=== PATIENT | male | born 1955 | race Caucasian/White ===

== ENCOUNTER 2023-10-07 09:48 | Outpatient (OUT) | payer MEDICARE, SELFPAY ==
[2023-10-07 10:21] LABS: Basophils Percent Auto 0.5 % (0.2-2.0); Eosinophils Absolute Auto 0.2 10^3/uL (0.0-0.7); Eosinophils Percent Auto 1.9 % (0.9-7.0); Hematocrit 46.1 % (42.0-54.0); Hemoglobin 15.3 g/dL (14.0-18.0); Immature Granulocytes Abs Auto 0.03 10^3/uL (0.00-0.03); Immature Granulocytes Pct Auto 0.3 % (0.0-0.5); Lymphocytes Absolute Auto 1.4 10^3/uL (1.2-3.8); Lymphocytes Percent Auto 16.4 % (20.5-60.0); Mean Corpuscular HGB Conc 33.2 g/dL (29.9-35.2); Mean Corpuscular Volume 87.3 fL (80.0-94.0); Mean Platelet Volume 9.3 fL (9.5-13.5); Monocytes Absolute Auto 0.5 10^3/uL (0.3-0.8); Monocytes Percent Auto 5.2 % (1.7-12.0); Neutrophils Absolute Auto 6.5 10^3/uL (1.4-6.5); Neutrophils Percent Auto 75.7 % (43.0-75.0); Platelet Count 246 10^3/uL (150-450); Red Blood Count 5.28 10^6/uL (4.70-6.10); Red Cell Distribution Width 12.6 % (11.0-15.0); White Blood Count 8.6 10^3/uL (4.0-11.0)
[2023-10-07 10:33] LABS: Alanine Aminotransferase 37 U/L (16-63); Albumin Globulin Ratio 0.9; Albumin Level 3.6 g/dL (3.4-5.0); Alkaline Phosphatase 106 U/L (46-116); Anion Gap 14.6; Aspartate Amino Transferase 17 U/L (15-37); Bilirubin Total 0.7 mg/dL (0.2-1.0); Calcium 9.6 mg/dL (8.5-10.1); Carbon Dioxide 27.3 mmol/L (21.0-32.0); Chloride 103 mmol/L (98-107); Estimated GFR (African America >60 (>=60); Estimated GFR (Non-African Ame 52 (>=60); Glucose 102 mg/dL (74-106); Potassium 3.9 mmol/L (3.5-5.1); Sodium 141 mmol/L (136-145); Total Protein 7.6 g/dL (6.4-8.2); Uric Acid 7.9 mg/dL (3.5-7.2)
[2023-10-07 10:44] LABS: Prostate Specific Antigen Scrn 3.36 ng/mL (<=4.00)
== END 2023-10-07 09:49 | disposition home or self-care (01) ==
LOC: LAB 09:54
PROVIDERS: PCP Family Medicine; Visit Provider Family Medicine
DX: N40.0 Benign prostatic hyperplasia without lower urinary tract symptoms (principal); M19.90 Unspecified osteoarthritis, unspecified site; Z12.5 Encounter for screening for malignant neoplasm of prostate; I10 Essential (primary) hypertension
CPT/HCPCS: 36415; 80053; 84550; 85025; G0103

== ENCOUNTER 2024-07-25 08:22 | Outpatient (OUT) | payer MEDICARE, SELFPAY ==
--- OUTSIDE RECORDS SUMMARY | 2024-07-25 08:30 | XMS_ITS | CCD ---
Author Organization [facility] Care Team Providers Care Vp Corporate Development Name Role Phone PHYSICIAN, DEFAULT Unavailable Unavailable PHYSICIAN, DEFAULT Unavailable Unavailable HOUSE, DR CISNEROS Admitting Unavailable HOUSE, DR CISNEROS Attending Unavailable HOUSE, DR CISNEROS Primary Care Unavailable HOUSE, DR CISNREOS Consulting Unavailable CHAVEZ, DR CAM Admitting Unavailable CHAVEZ, DR CAM Attending Unavailable HOUSE, DR CISNEROS Primary Care Unavailable CHAVEZ, DR CAM Consulting Unavailable House, Lorenzo Hillman Primary Care Physician [phone] HOUSE, LORENZO Hillman Primary Care Physician YUSUF, Erasto Chen Attending Unavailable CHAVEZ, Erasto Chen Attending Unavailable CHAVEZ, Erasto Chen Attending Unavailable CHVAEZ, Erasto Chen Admitting Unavailable CHAVEZ, Erasto Chen Attending Unavailable CHAVEZ, Erasto Chen Attending Unavailable HOUSE, DO LORENZO Hillman Attending Unavailable HOUSE, LORENZO Hillman Primary Care Unavailable HOUSE, DO LORENZO Hillman Attending Unavailable HOUSE, LORENZO Hillman Primary Care Unavailable CHAVEZ, Erasto Chen Attending Unavailable CHAVEZ, Erasto Chen Admitting Unavailable CHAVEZ, Erasto Chen Attending Unavailable Allergies Allergy Classification Reported Allergen(s) Allergy Type Date of Onset Reaction(s) Facility (2 sources) No Known Medication Allergies; Translations: [No Known Medication Allergies] Propensity to adverse reactions (disorder) [facility] Repository Medications Current Medications Medication Drug Class(es) Dates Sig (Normalized) Sig (Original) Eliquis (1 source) Factor Xa Inhibitor Start: 05-23-2019 Eliquis Oral, BID, Refills(s) 0 Start Date: 05/23/19 Status: Ordered hydroCHLOROthiazide / Lisinopril (3 sources) Thiazide Diuretic, Angiotensin Converting Enzyme Inhibitor Start: 05-23-2019 take 1 tablet by mouth once daily hydrochlorothia zide-lisinopril 12.5 mg-10 mg oral tablet tab(s), Oral, Daily, Refill(s) 0 Start Date: 05/23/19 Status: Ordered Repeat number: 1 Start: 05-23-2019 [facility] hydrochlorothiazide-lisinopril 12.5 mg-1 0 mg oral tablet tab(s), Oral, Daily, Refill(s) 0 Start Date: 05/23/19 Status: Ordered tamsulosin hydrochloride 0.4 mg oral capsule (3 sources) alpha-Adrenergic Festus Start: 06-20-2024 take 1 capsule by mouth twice daily tamsulosin 0.4 mg Cap 0.4 mg = 1 cap(s), Oral, BID, # 60 cap(s), Refills(s) 11, Pharmacy: [facility] [id number], 165, cm, 06/20/24 10:27:00 EDT, Height/Length Dosing, 81.5, kg, 06/20/24 10:27:00 EDT, Weight Dosing Start Date: 06/20/24 Status: Ordered Quantity: 60.0 Unit: cap(s) Repeat number: 12 Indication: Benign prostatic hyperplasia with lower urinary tract symptoms Start: 07-16-2022 End: 07-11-2023 take 1 capsule by mouth twice daily Flomax 0.4 mg Cap 0.4 mg = 1 cap(s), Oral, BID, X 90 day(s), # 180 cap(s), Refills(s) 3, Pharmacy: [facility] [id number], 165, cm, 04/22/22 8:53:00 EST, Height/Length Dosing, 84.7, kg, 04/22/22 8:53:00 EST, Weight Dosing Start Date: 07/16/22 Stop Date: 07/11/23 Status: Ordered Start: 10-28-2021 take 1 capsule by mo [facility] twice daily Flomax 0.4 mg Cap 0.4 mg = 1 cap(s), Oral, BID, # 180 tab(s), Refills(s) 1, Pharmacy: [facility] [id number], 165, cm, 10/15/20 14:13:00 EDT, Height/Length Dosing, 80, kg, 10/15/20 14:13:00 EDT, Weight Dosing Start Date: 10/28/21 Status: Ordered Problems Active Problems Problem Classification Problem Date Documented Da te Episodic/Chronic Essential hypertension (3 sources) Hypertensive disorder 05-23-2019 Chronic Genitourinary symptoms and ill-defined conditions (7 sources) Nocturia; Translations: [Nocturia] Onset: 04-22-2022 Episodic Hyperplasia of prostate (9 sources) Benign prostatic hyperplasia with lower urinary tract symptoms; Translations: [Benign prostatic hypertrophy with outflow obstruction] Onset: 02-03-2022 Chronic Other screening for suspected conditions (not mental disorders or infectious disease) (6 sources) Elevated prostate specific antigen [PSA]; Translations: [Raised prostate specific antigen] Onset: 02-11-2022 Episodic Phlebitis; thrombophlebitis and thromboembolism (3 sources) Deep venous thrombosis 05-23-2019 Episodic Unclassified (1 source) Asymptomatic microscopic hematuria 06-20-2024 Past or Other Problems Problem Classification Problem Date Documented Da te Episodic/Chronic Other non-traumatic joint disorders (4 sources) Pain in right shoulder; Translations: [PAIN IN RIGHT SHOULDER] Onset: 10-01-2021 Episodic Results Test Name Value Interpretation Reference Range Facility Lab - Urinalysis [facility] 0 06-21-2024 Lab - Urinalysis Results [id number] 0#1.00OT[facility] Ambulatory Visit Summaryon 0 06-20-2024 Ambulatory Visit Summary Ambulatory Visit Summary JERI LOW :1955 Visit Date:06/20/2024 Ambulatory Visit Instructions Your Diagnosis Elevated PSA Asymptomatic microscopic hematuria BPH with urinary obstruction Your Care Team Attending Physician - Erasto CHAVEZ MD Primary Care Physician - LORENZO KING DO This Is Your Medications List tamsulosin (tamsulosin 0.4 mg Cap) Contact prescribing physician if questions or concerns hydrochlorothiazide- lisinopril (hydrochlorothiazide -lisinopril 12.5 mg-10 mg oral tablet) Procedures Performed Transrectal biopsy of prostate using ultrasound (US) guidance (05/17/2018), History of hernia repair. Discharge Vitals Temperature (Temporal Artery) 37 ???C Heart Rate (Peripheral) 104 Respiratory Rate 16 Blood Pressure 126/83 Height 165 cm Height 65 in Weight 81.5 kg Weight 179.677 lb BMI 29.94 What to do next You Need to Schedule the Following Appointments Follow Up with YUSUF NGUYEN, SHERIN Leone When: Where: [facility] [address], [place] [address]- [phone] Medications What How Much When Why Instructions Unchanged tamsulosin (tamsulosin 0.4 mg Cap) 1 Capsules By Mouth 2 times a day BPH with urinary obstruction Pickup at [facility] [id number] Unchanged hydrochlorothiazide- lisinopril (hydrochlorothiazide -lisinopril 12.5 mg-10 mg oral tablet) By Mouth Every day Contact prescribing physician if questions or concerns Pharmacy Information [facility] [id number]: [address] [place], [place] [id number] [phone] Allergies No Known Medication Allergies Problems Ongoing - Any problem that you are currently receiving treatment for. Asymptomatic microscopic hematuria BPH with urinary obstruction Deep vein thrombosis Elevated PSA H/O hematuria Hypertension Nocturia Patient Survey You may receive a survey via text or e-mail asking about your office visit. Please share your experience with us by completing your survey. We appreciate your feedback and thank you for choosing us for your care. Education Materials Hematuria, Adult Hematuria is blood in the urine. Blood may be visible in the urine, or it may be identified with a test. This condition can be caused by infections of the bladder, urethra, kidney, or prostate. Other possible causes include: ??? Kidney stones. ??? Cancer of the urinary tract. ??? Too much calcium in the urine. ??? Conditions that are passed from parent to child (inherited conditions). ??? Exercise that requires a lot of energy. Infections can usually be treated with medicine, and a kidney stone usually will pass through your urine. If neither of these is the cause of your hematuria, more tests may be needed to identify the cause of your symptoms. It is very important to tell your health care provider about any blood in your urine, even if it is painless or the blood stops without treatment. Blood in the urine, when it happens and then stops and then happens again, can be a symptom of a very serious condition, including cancer. There is no pain in the initial stages of many urinary cancers. Follow these instructions at home: Medicines ??? Take ifai-dgu-ywplecn and prescription medicines only as told by your health care provider. ??? If you were prescribed an antibiotic medicine, take it as told by your health care provider. Do not stop taking the antibiotic even if you start to feel better. Eating and drinking ??? Drink enough fluid to keep your urine pale yellow. It is recommended that you drink 3???4 quarts (2.8???3.8 L) a day. If you have been diagnosed with an infection, drinking cranberry juice in addition to large amounts of water is recommended. ??? Avoid caffeine, tea, and carbonated beverages. These tend to irritate the bladder. ??? Avoid alcohol because it may irritate the prostate (in males). General instructions ??? If you have been diagnosed with a kidney stone, follow your health care provider's instructions about straining your urine to catch the stone. ??? Empty your bladder often. Avoid holding urine for long periods of time. ??? If you are female: ? After a bowel movement, wipe from front to back and use each piece of toilet paper only once. ? Empty your bladder before and after sex. ??? Pay attention to any changes in your symptoms. Tell your health care provider about any changes or any new symptoms. ??? It is up to you to get the results of any tests. Ask your health care provider, or the department that is doing the test, when your results will be ready. ??? Keep all follow-up visits. This is important. Contact a health care provider if: ??? You develop back pain. ??? You have a fever or chills. ??? You have nausea or vomiting. ??? Your symptoms do not improve after 3 days. ??? Your symptoms get worse. Get help right away if: ??? (more content not included)... Normal [facility] URINALYSISOrdered By: SYSTEM SYSTEM on 06-20-2024 Bilirubin Ql (U) Negative Normal Negativemg/dL [facility] UA Auto SS Clarity (U) Clear (06/20/24 11:17 AM) Normal Clear [facility] UA Auto SS Color (U) Yellow 1 (06/20/24 11:17 AM) Normal Yellow [facility] UA Auto SS Comment on above: Interpretive Data: M icroscopic readings are only performed on those samples that meet specific criteria set forth by [facility]. Epithelial cells.squamous Auto (Urine sed) [#/Area] 0-2 graded/HPF Invalid Interpretation Code FT UA Auto SS Glucose Ql (U) Negative Normal Negativemg/dL FT UA Auto SS Hemoglobin Auto test strip (U) [Mass/Vol] 1+ mg/dL Invalid Interpretation Code Negativemg/dL [facility] UA Auto SS Ketones Auto test strip Ql (U) Negative Normal Negativemg/dL FT UA Auto SS Leukocyte esterase Auto test strip Ql (U) Negative Normal NegativeLeu/u L FT UA Auto SS Mucus Auto Ql (U) Negative Normal Negativegr brad d/LPF [facility] UA Auto SS Nitrite Auto test strip Ql (U) Negative Normal Negativemg/dL [facility] UA Auto SS pH (U) 6.5 *NA* (06/20/24 11:17 AM) Invalid Interpretation Code 5.0 - 9.0 [facility] UA Auto SS Protein Ql (U) Trace mg/dL Invalid Interpretation Code Negativemg/dL [facility] UA Auto SS RBC Ql (U) 4-20 graded/HPF Invalid Interpretation Code 0-3graded/HPF FT UA Auto SS Specific gravity (U) [Rel density] 1.022 *NA* (06/20/24 11:17 AM) Invalid Interpretation Code 1.005 - 1.030 [facility] UA Auto SS Urobilinogen (U) [Mass/Vol] Negative Normal Negativemg/dL [facility] UA Auto SS WBC Auto (Urine sed) [#/Area] 0-5 graded/HPF Normal 0-5graded/HPF [facility] UA Auto SS URINALYSISOrdered By: Chris Alba on 06-20-2024 UA Spec Desc Random Urine (06/20/24 11:17 AM) Normal [facility] UA Auto SS Urinalysis with Microon 0 Bilirubin Ql (U) Negative Normal Negative [facility] Comment on above: Performed By: #### 4 [id number] #### [facility] [address] [place] [address] Clarity (U) Clear Normal Clear [facility] Comment on above: Performed By: #### 4 [id number] #### [facility] [address] [place] [address] Color (U) Yellow Normal Yellow [facility] Comment on above: Result Comment: Micr oscopic readings are only performed on those samples that meet specific criteria set forth by [facility]. Performed By: #### 4 [id number] #### [facility] [address] [place] [address] Epithelial cells.squamous Auto (Urine sed) [#/Area] 0-2 Invalid Interpretation Code [facility] Comment on above: Performed By: #### 4 [id number] #### [facility] [address] [place] [address] Glucose Ql (U) Negative Normal Negative [facility] Comment on above: Performed By: #### 4 [id number] #### [facility] [address] [place] [address] Hemoglobin Auto test strip (U) [Mass/Vol] 1+ mg/dL Abnormal Negative [facility] Comment on above: Performed By: #### 4 [id number] #### [facility] [address] [place] [address] Ketones Auto test strip Ql (U) Negative Normal Negative [facility] Comment on above: Performed By: #### 4 [id number] #### [facility] [address] [place] [address] Leukocyte esterase Auto test strip Ql (U) Negative Normal Negative [facility] Comment on above: Performed By: #### 4 [id number] #### [facility] [address] [place] [address] Mucus Auto Ql (U) Negative Normal Negative [facility] Comment on above: Performed By: #### 4 [id number] #### [facility] [address] [place] [address] Nitrite Auto test strip Ql (U) Negative Normal Negative [facility] Comment on above: Performed By: #### 4 [id number] #### [facility] [address] [place] [address] pH (U) 6.5 [pH] Invalid Interpretation Code 5.0-9.0 [facility] Comment on above: Performed By: #### 4 [id number] #### [facility] [address] [place] [address] Protein Ql (U) Trace Abnormal Negative [facility] Comment on above: Performed By: #### 4 [id number] #### [facility] [address] [place] [address] RBC Ql (U) 4-20 Abnormal 0-3 [facility] Comment on above: Performed By: #### 4 [id number] #### [facility] [address] [place] [address] Specific gravity (U) [Rel density] 1.022 Invalid Interpretation Code 1.005-1.030 [facility] Comment on above: Performed By: #### 4 [id number] #### [facility] [address] [place] [address] Urobilinogen (U) [Mass/Vol] Negative Normal Negative [facility] Comment on above: Performed By: #### 4 [id number] #### [facility] [address] [place] [address] WBC Auto (Urine sed) [#/Area] 0-5 Normal 0-5 [facility] Comment on above: Performed By: #### 4 [id number] #### [facility] [address] [place] [address] Type of Urine collection method Random Urine Normal [facility] Comment on above: Performed By: #### 4 [id number] #### [facility] [address] [place] [address] Urology Office/Clinic Noteon 06-20-2024 Urology Office/Clinic Note Urology Office/Clinic Note Chief Complaint 1 year with PSA HPI Staff 68 year old male patient here for year follow up with PSA. Previous dx: elevated PSA, BPH with urinary obstruction. S/P TRUS/bx 05/2018 *flomax 0.4 mg bid Previous PSA 02/17/23- 2.3 & 21.3% Current PSA 10/07/23 - 3.36 Denies urinary concerns at this time. Pt does have Nocturia 2-3x nightly but states that he does not stop his drinks until about 30 minutes before he goes to bed. History of Present Illness Tests reviewed: reviewed UA, PSA I have reviewed the previous health record information and history for this patient from Dr. Chavez. I have reviewed and verified the staff HPI to be accurate for this encounter. Review of Systems ROS - Provider Constitutional: denies weight loss, denies hot flashes. Eyes: denies eye problems. Gastrointestinal: denies nausea, denies vomiting. Cardiovascular: denies chest pain or angina. Integumentary: no dryness Musculoskeletal: denies musculoskeletal symptoms. ENMT: denies otolaryngeal symptoms. Respiratory: no shortness of breath. Heme/Lymph: denies easy bleeding tendency, denies easy bruising tendency. Psychiatric: no confusion, no anxiety. Genitourinary: See HPI. Physical Exam Vitals & Measurements T: 37 ???C(Temporal Artery) HR: 104(Peripheral) RR: 16 BP: 126/83 HT: 165 cm HT: 65 in WT: 179.677 lb WT: 81.5 kg BMI: 29.94 General Appearance: alert, no distress, well nourished, well developed male. Assessment/Plan 1. Elevated PSA (R97.20: Elevated prostate specific antigen [PSA]) PSA: 04/2018 - 6.32 & 9.8% 09/25/20 - 4.7 & 10.4% 02/03/22 - 3.2 & 16.6% 02/17/23 - 2.3 & 21.3% 10/07/23 - 3.36 S/p TRUS/bx 05/2018 neg. JORGE 04/22/22: 45 gms, benign. PSA has increased from prior. Has been high in the past. Will cont to monitor. -PSA in 1 year 2. Asymptomatic microscopic hematuria (R31.21: Asymptomatic microscopic hematuria) UA today shows small blood (no prior UAs since 2020). Denies gross hematuria. Advised pt we will send urine for further microscopic evaluation. Briefly discussed hematuria workup may be initiated which includes cytology/possible FISH test, upper tract imaging, and cystoscopy. -Urine sample to be sent for microscopic evaluation. Will call pt w results. If >3 RBCs, will initiate hematuria workup (pt aware). -Cont sx monitoring and routine UAs. Pt knows to notify the office if he were to experience gross hematuria or clots. 3. BPH with urinary obstruction (N40.1: Benign prostatic hyperplasia with lower urinary tract symptoms) Taking Flomax 0.4 mg bid. [1] Not voicing any urinary habit complaints. Follow-up With When Contact Information YUSUF NGUYEN, Erasto Chen, URL [facility] [address], [place] [address]- [phone] Additional Instructions: 1 yr w/ PSA Patient Education Hematuria, Adult I, Joanne Jason, personally scribed for Dr. Chavez on 06/20/2024 10:58:39. . Documentation recorded by the scribe, Joanne Jason, accurately reflects the services(s) I performed and decisions made by me. Authenticated by Dr. Chavez on 06/20/2024 11:02:06. Problem List/Past Medical History Ongoing Asymptomatic microscopic hematuria BPH with urinary obstruction Deep vein thrombosis Elevated PSA H/O hematuria Hypertension Nocturia Historical No qualifying data Procedure/Surgical History Transrectal biopsy of prostate using ultrasound (US) guidance (05/17/2018), History of hernia repair. Medications hydrochlorothiazide- lisinopril 12.5 mg-10 mg oral tablet, Oral, Daily tamsulosin 0.4 mg Cap, 0.4 mg= 1 cap(s), Oral, BID, 11 refills Allergies No Known Medication Allergies Social History Alcohol Never., 06/13/2024 Substance Abuse Never., 06/13/2024 Tobacco Never (less than 100 in lifetime) Tobacco Use:. Never Smokeless Tobacco Use:. Household tobacco concerns: No., 06/20/2024 Family History Family history is negative Lab Results Ambulatory Point of Care Results Bilirubin Urine Dipstick: Negative (06/20/24 10:18:00) Blood Urine Dipstick: 1+ Small (06/20/24 10:18:00) Glucose Urine Dipstick: Negative (06/20/24 10:18:00) Ketones Urine Dipstick: Negative (06/20/24 10:18:00) Leukocytes Urine Dipstick: Negative (06/20/24 10:18:00) Nitrite Urine Dipstick: Negative (06/20/24 10:18:00) Protein Urine Dipstick: 1+ (30 mg/dl) (06/20/24 10:18:00) Specific [place] Urine Dipstick: 1.025 (06/20/24 10:18:00) Urine Appearance Urine Dipstick: Clear (06/20/24 10:18:00) Urine Color Urine Dipstick: Yellow (06/20/24 10:18:00) Urobilinogen Urine Dipstick: Normal 0.2-1 EU/dl (06/20/24 10:18:00) pH Urine Dipstick: 6.5 (06/20/24 10:18:00) [1] URO- 1 year; Erasto CHAVEZ MD 05/15/2023 09:31 EDT Normal [facility] Comment on above: Result Comment: Elec tronically Signed By: Erasto CHAVEZ MD\.br\Date and Time Signed: 06/20/24 11:02 EDT\.br\Electronically Co-Signed By: Joanne Jason\.br\Date and Time Co-Signed: 06/20/24 10:59 EDT Lab - Other Lab [facility] Lab - Other Lab Results [id number] [facility]-07-2023 Patient Handout [id number] #[facility] Patient Handout [id number] [facility] PSA, FREE AND TOTAL RATIOon 02-04-2022 % Free PSA 16.6 % Normal [facility] Comment on above: Result Comment: The table below lists the probability of prostate cancer for men with non-suspicious JORGE results and total PSA between 4 and 10 ng/mL, by patient age (Catalona et al, PADMA 1998, 279:1542). % Free PSA 50-64 yr 65-75 yr 0.00-10.00% 56% 55% 10.01-15.00% 24% 35% 15.01-20.00% 17% 23% 20.01-25.00% 10% 20% >25.00% 5% 9% Please note: Conrado et al did not make specific recommendations regarding the use of percent free PSA for any other population of men. Performed By: #### P SAFREE #### [facility] [address] [address] [address] Angela Crowe Prostate specific Ag [Mass/Vol] 3.2 ng/mL Normal 0.0-4.0 [facility] Comment on above: Result Comment: Blayne ESCOTO methodology. . According to the [employer], Serum PSA should decrease and remain at undetectable levels after radical prostatectomy. The AUA defines biochemical recurrence as an initial PSA value 0.2 ng/mL or greater followed by a subsequent confirmatory PSA value 0.2 ng/mL or greater. Values obtained with different assay methods or kits cannot be used interchangeably. Results cannot be interpreted as absolute evidence of the presence or absence of malignant disease. Performed By: #### P SAFREE #### [facility] [address] [address] [address] Angela Crowe PSA, Free 0.53 ng/mL Normal N/A [facility] Comment on above: Result Comment: Blayne ESCOTO methodology. Performed By: #### P SAFREE #### [facility] [address] [address] [address] Angela Crowe Vital Signs Date Time Vital Sign Value Performing Clinician Isabella nobles 05-15-2023 08:48-0400 Diastolic blood pressure 84 mm[Hg] Erasto CHAVEZ [facility] 05-15-2023 08:48-0400 Heart rate 76 /min Erasto CHAVEZ [facility] 05-15-2023 08:48-0400 Respiratory rate 16 /min Erasto CHAVEZ [facility] 05-15-2023 08:48-0400 Systolic blood pressure 132 mm[Hg] Erasto CHAVEZ [facility] 03-07-2023 08:50-0500 Blood Pressure Location Erasto CHAVEZ [facility] 04-22-2022 08:50-0500 Diastolic blood pressure 90 mm[Hg] Erasto CHAVEZ [facility] 04-22-2022 08:50-0500 Heart rate 93 /min Erasto CHAVEZ [facility] 04-22-2022 08:50-0500 Systolic blood pressure 133 mm[Hg] Reasto CHAVEZ [facility] Encounters Encounter Date Encounter Type Care Provider Facility Start: 06-26-2025 ambulatory Erasto CHAVEZ Facili ty:[facility] Start: 06-19-2025 ambulatory Erasto CHAVEZ Facili ty:[facility] Start: 09-05-2024 ambulatory Erasto CHAVEZ Facili ty:[facility] Start: 06-20-2024 End: 06-20-2024 ambulatory Erasto CHAVEZ Facility[place] Start: 06-20-2024 End: 06-20-2024 Lab Drop off Erasto CHAVEZ [facility] Start: 06-20-2024 End: 06-20-2024 ambulatory Erasto CHAVEZ Facility:[facility] Start: 06-13-2024 End: 06-13-2024 ambulatory Erasto R YUSUF Facility:[facility] Start: 04-07-2024 ambulatory DO LORENZO P HOUSE Faci lity:[facility] Start: 10-07-2023 End: 10-07-2023 ambulatory DO LORENZO P HOUSE Facility:[facility] Start: 05-15-2023 End: 05-15-2023 Patient encounter procedure Erasto CHAVEZ [facility] Start: 04-22-2022 End: 04-22-2022 Patient encounter procedure Erasto CHAVEZ [facility] Start: 02-03-2022 End: 02-04-[address] ERASTO CHAVEZ Facility:[facility] Start: 10-01-2021 End: 10-02-[address] LORENZO KING Facility:[facility] Start: 11-11-2017 End: 11-12-2017 Patient encounter DEFAULT PHYSICIAN Facility:[facility] Procedures Date Procedure Procedure Detail Performing Clinician Start: 05-17-2018 Transrectal biopsy o f prostate using ultrasound guidance Erasto CHAVEZ History of hernia repair Sparkle CHAVEZ Payers Date Payer Category Payer Unknown 1961 Unknown [id number] 1955 Unknown [id number] 2.16.84 [id number] 1953 Unknown [id number] 2.16.84 [id number] 1953 Unknown [id number] 2.16.8 [id number] 1953 Unknown [id number] 2.16.8 [id number] 1953 Unknown [id number] 2.16.8 [id number] 1953 Unknown [id number] 2.16.8 [id number] 1953 Unknown [id number] 2.16.8 [id number] 1953 Unknown [id number] 2.16.8 [id number] 1953 Unknown [id number] 2.16.8 [id number] 1953 Unknown [id number] 2.16.8 [id number] Social History Date Type Detail Facility Start: 05-23-2019 End: 06-20-2024 Tobacco smoking status Never smoked tobacco (finding) [facility] Sex Assigned At Male [facility] Tobacco smoking status Never [facility] Sexual Orientation [facility] Start: 05-05-2018 Sex Male (finding) [facility] Functional Status Date Assessment Result Facility 05-15-2023 Functional Status N/A [facility] 04-22-2022 Functional Status N/A [facility] Clinical Notes 10-02-2021 to 06-20-2024 Note Date & Type Note Facility 06-20-2024 Note Patient Education Urology Hematuria, Adult Hematuria is blood in the urine. Blood may be visible in the urine, or it may be identified with a test. This condition can be caused by infections of the bladder, urethra, kidney, or prostate. Other possible causes include: ??? Kidney stones. ??? Cancer of the urinary tract. ??? Too much calcium in the urine. ??? Conditions that are passed from parent to child (inherited conditions). ??? Exercise that requires a lot of energy. Infections can usually be treated with medicine, and a kidney stone usually will pass through your urine. If neither of these is the cause of your hematuria, more tests may be needed to identify the cause of your symptoms. It is very important to tell your health care provider about any blood in your urine, even if it is painless or the blood stops without treatment. Blood in the urine, when it happens and then stops and then happens again, can be a symptom of a very serious condition, including cancer. There is no pain in the initial stages of many urinary cancers. Follow these instructions at home: Medicines ??? Take fdyf-hue-axeadpr and prescription medicines only as told by your health care provider. ??? If you were prescribed an antibiotic medicine, take it as told by your health care provider. Do not stop taking the antibiotic even if you start to feel better. Eating and drinking ??? Drink enough fluid to keep your urine pale yellow. It is recommended that you drink 3?4 quarts (2.8?3.8 L) a day. If you have been diagnosed with an infection, drinking cranberry juice in addition to large amounts of water is recommended. ??? Avoid caffeine, tea, and carbonated beverages. These tend to irritate the bladder. ??? Avoid alcohol because it may irritate the prostate (in males). General instructions ??? If you have been diagnosed with a kidney stone, follow your health care provider's instructions about straining your urine to catch the stone. ??? Empty your bladder often. Avoid holding urine for long periods of time. ??? If you are female: ? After a bowel movement, wipe from front to back and use each piece of toilet paper only once. ? Empty your bladder before and after sex. ??? Pay attention to any changes in your symptoms. Tell your health care provider about any changes or any new symptoms. ??? It is up to you to get the results of any tests. Ask your health care provider, or the department that is doing the test, when your results will be ready. ??? Keep all follow-up visits. This is important. Contact a health care provider if: ??? You develop back pain. ??? You have a fever or chills. ??? You have nausea or vomiting. ??? Your symptoms do not improve after 3 days. ??? Your symptoms get worse. Get help right away if: ??? You develop severe vomiting and are unable to take medicine without vomiting. ??? You develop severe pain in your back or abdomen even though you are taking medicine. ??? You pass a large amount of blood in your urine. ??? You pass blood clots in your urine. ??? You feel very weak or like you might faint. ??? You faint. Summary ??? Hematuria is blood in the urine. It has many possible causes. ??? It is very important that you tell your health care provider about any blood in your urine, even if it is painless or the blood stops without treatment. ??? Take uglz-bta-mvswavw and prescription medicines only as told by your health care provider. ??? Drink enough fluid to keep your urine pale yellow. This information is not intended to replace advice given to you by your health care provider. Make sure you discuss any questions you have with your health care provider. Document Revised: 10/03/2020 Document Reviewed: 10/03/2020 [employer] Patient Education ? 2023 [employer] [facility] 02-01-2024 Note Entered by GIFTY KING DO on February 01, 2024 15:21:46 EST From: LORENZO KING DO To: [facility] [id number] Sent: 02/01/2024 15:21:46 EST Subject: Medication Management Submitted: Complete:hydrochlorothiazide-lisin opril (hydrochlorothiazide-lisinopril 12.5 mg-10 mg oral tablet) Signed by LORENZO KING DO 02/01/2024 15:21:00 EST Approved with modifications: hydrochlorothiazide-lisinopril (LISINOPRIL-HCTZ 10-12.5 MG TAB) TAKE 1 TABLET BY MOUTH DAILY Qty: 90 tab(s) Days Supply: 90 Refills: 1 Substitutions Allowed Route To Pharmacy - [facility] [id number] -------- From: [facility] [id number] To: LORENZO KING DO Sent: February 01, 2024 2:03:24 PM [facility] Subject: Medication Management Due: February 02, 2024 12:01:58 AM [facility] On Hold Pending Signature Drug: hydrochlorothiazide-lisinopril (hydrochlorothiazide-lisinopril 12.5 mg-10 mg oral tablet), TAKE 1 TABLET BY MOUTH DAILY Quantity: 90 tab(s) Days Supply: 0 Refills: 0 Substitutions Allowed Notes from Pharmacy: Dispensed Drug: hydrochlorothiazide-lisinopril (hydrochlorothiazide-lisinopril 12.5 mg-10 mg oral tablet), TAKE 1 TABLET BY MOUTH DAILY Quantity: 90 tab(s) Days Supply: 90 Refills: 0 Substitutions Allowed Notes from Pharmacy: -------- [facility] 05-15-2023 Hospital Discharge instructions Patient Education 05/15/2023 09:28:50 Benign Prostatic Hyperplasia Benign Prostatic Hyperplasia Benign prostatic hyperplasia (BPH) is an enlarged prostate gland that is caused by the normal aging process. The prostate may get bigger as a man gets older. The condition is not caused by cancer. The prostate is a walnut-sized gland that is involved in the production of semen. It is located in front of the rectum and below the bladder. The bladder stores urine. The urethra carries stored urine out of the body. An enlarged prostate can press on the urethra. This can make it harder to pass urine. The buildup of urine in the bladder can cause infection. Back pressure and infection may progress to bladder damage and kidney (renal) failure. What are the causes? This condition is part of the normal aging process. However, not all men develop problems from this condition. If the prostate enlarges away from the urethra, urine flow will not be blocked. If it enlarges toward the urethra and compresses it, there will be problems passing urine. What increases the risk? This condition is more likely to develop in men older than 50 years. What are the signs or symptoms? Symptoms of this condition include: Getting up often during the night to urinate. Needing to urinate frequently during the day. Difficulty starting urine flow. Decrease in size and strength of your urine stream. Leaking (dribbling) after urinating. Inability to pass urine. This needs immediate treatment. Inability to completely empty your bladder. Pain when you pass urine. This is more common if there is also an infection. Urinary tract infection (UTI). How is this diagnosed? This condition is diagnosed based on your medical history, a physical exam, and your symptoms. Tests will also be done, such as: A post-void bladder scan. This measures any amount of urine that may remain in your bladder after you finish urinating. A digital rectal exam. In a rectal exam, your health care provider checks your prostate by putting a lubricated, gloved finger into your rectum to feel the back of your prostate gland. This exam detects the size of your gland and any abnormal lumps or growths. An exam of your urine (urinalysis). A prostate specific antigen (PSA) screening. This is a blood test used to screen for prostate cancer. An ultrasound. This test uses sound waves to electronically produce a picture of your prostate gland. Your health care provider may refer you to a specialist in kidney and prostate diseases (urologist). How is this treated? Once symptoms begin, your health care provider will monitor your condition (active surveillance or watchful waiting). Treatment for this condition will depend on the severity of your condition. Treatment may include: Observation and yearly exams. This may be the only treatment needed if your condition and symptoms are mild. Medicines to relieve your symptoms, including: ?Medicines to shrink the prostate. ?Medicines to relax the muscle of the prostate. Surgery in severe cases. Surgery may include: ?Prostatectomy. In this procedure, the prostate tissue is removed completely through an open incision or with a laparoscope or robotics. ?Transurethral resection of the prostate (TURP). In this procedure, a tool is inserted through the opening at the tip of the penis (urethra). It is used to cut away tissue of the inner core of the prostate. The pieces are removed through the same opening of the penis. This removes the blockage. ?Transurethral incision (TUIP). In this procedure, small cuts are made in the prostate. This lessens the prostate's pressure on the urethra. ?Transurethral microwave thermotherapy (TUMT). This procedure uses microwaves to create heat. The heat destroys and removes a small amount of prostate tissue. ?Transurethral needle ablation (TUNA). This procedure uses radio frequencies to destroy and remove a small amount of prostate tissue. ?Interstitial laser coagulation (ILC). This procedure uses a laser to destroy and remove a small amount of prostate tissue. ?Transurethral electrovaporization (TUVP). This procedure uses electrodes to destroy and remove a small amount of prostate tissue. ?Prostatic urethral lift. This procedure inserts an implant to push the lobes of the prostate away from the urethra. Follow these instructions at home: Take hxgh-teg-zsodghr and prescription medicines only as told by your health care provider. Monitor your symptoms for any changes. Contact your health care provider with any changes. Avoid drinking large amounts of liquid before going to bed or out in public. Avoid or reduce how much caffeine or alcohol you drink. Give yourself time when you urinate. Keep all follow-up visits. This is important. Contact a health care provider if: You have unexplained back pain. Your symptoms do not get better with treatment. You develop side effects from the medicine you are taking. Your urine becomes very dark or has a bad smell. Your lower abdomen becomes distended and you have trouble passing urine. Get help right away if: You have a fever or chills. You suddenly cannot urinate. You feel light-headed or very dizzy, or you faint. There are large amounts of blood or clots in your urine. Your urinary problems become hard to manage. You develop moderate to severe low back or flank pain. The flank is the side of your body between the ribs and the hip. These symptoms may be an emergency. Get help right away. Call 911. Do not wait to see if the symptoms will go away. Do not drive yourself to the hospital. Summary Benign prostatic hyperplasia (BPH) is an enlarged prostate that is caused by the normal aging process. It is not caused by cancer. An enlarged prostate can press on the urethra. This can make it hard to pass urine. This condition is more likely to develop in men older than 50 years. Get help right away if you suddenly cannot urinate. This information is not intended to replace advice given to you by your health care provider. Make sure you discuss any questions you have with your health care provider. Document Revised: 08/21/2021 Document Reviewed: 08/21/2021 [employer] Patient Education 2022 [employer]. Follow Up Care 04/22/2022 09:31:50 With:YUSUF NGUYEN, Erasto Chen, URL Address: [address] [place], [place] [id number]- When: Unknown [facility] 04-22-2022 Hospital Discharge instructions Patient Education 04/22/2022 09:24:11 Prostate Cancer Screening Prostate Cancer Screening The prostate is a walnut-sized gland that is located below the bladder and in front of the rectum in males. The function of the prostate (prostate gland) is to add fluid to semen during ejaculation. Prostate cancer is the second most common type of cancer in men. A screening test for cancer is a test that is done before cancer symptoms start. Screening can help to identify cancer at an early stage, when the cancer can be treated more easily. The recommended prostate cancer screening test is a blood test called the prostate-specific antigen (PSA) test. PSA is a protein that is made in the prostate. As you age, your prostate naturally produces more PSA. Abnormally high PSA levels may be caused by: Prostate cancer. An enlarged prostate that is not caused by cancer (benign prostatic hyperplasia, BPH). This condition is very common in older men. A prostate gland infection (prostatitis). Medicines to assist with hair growth, such as finasteride. Depending on the PSA results, you may need more tests, such as: A physical exam to check the size of your prostate gland. Blood and imaging tests. A procedure to remove tissue samples from your prostate gland for testing (biopsy). Who should have screening? Screening recommendations vary based on age. If you are younger than age 40, screening is not recommended. If you are age 40 54 and you have no risk factors, screening is not recommended. If you are younger than age 55, ask your health care provider if you need screening if you have one of these risk factors: ?Being of -[place] descent. ?Having a family history of prostate cancer. If you are age 55 69, talk with your health care provider about your need for screening and how often screening should be done. If you are older than age 70, screening is not recommended. This is because the risks that screening can cause are greater than the benefits that it may provide (risks outweigh the benefits). If you are at high risk for prostate cancer, your health care provider may recommend that you have screenings more often or start screening at a younger age. You may be at high risk if you: Are older than age 55. Are -Bangladeshi. Have a father, brother, or uncle who has been diagnosed with prostate cancer. The risk may be higher if your family member's cancer occurred at an early age. What are the benefits of screening? There is a small chance that screening may lower your risk of dying from prostate cancer. The chance is small because prostate cancer is typically a slow-growing cancer, and most men with prostate cancer from a different cause. What are the risks of screening? The main risk of prostate cancer screening is diagnosing and treating prostate cancer that would never have caused any symptoms or problems (overdiagnosis and overtreatment). PSA screening cannot tell you if your PSA is high due to cancer or a different cause. A prostate biopsy is the only procedure to diagnose prostate cancer. Even the results of a biopsy may not tell you if your cancer needs to be treated. Slow-growing prostate cancer may not need any treatment other than monitoring, so diagnosing and treating it may cause unnecessary stress or other side effects. A prostate biopsy may also cause: Infection or fever. A false negative. This is a result that shows that you do not have prostate cancer when you actually do have prostate cancer. Questions to ask your health care provider When should I start prostate cancer screening? What is my risk for prostate cancer? How often do I need screening? What type of screening tests do I need? How do I get my test results? What do my results mean? Do I need treatment? Contact a health care provider if: You have difficulty urinating. You have pain when you urinate or ejaculate. You have blood in your urine or semen. You have pain in your back or in the area of your prostate. You have trouble getting or maintaining an erection (erectile dysfunction, ED). Summary Prostate cancer is a common type of cancer in men. The prostate (prostate gland) is located below the bladder and in front of the rectum. This gland adds fluid to semen during ejaculation. Prostate cancer screening may identify cancer at an early stage, when the cancer can be treated more easily. The prostate-specific antigen (PSA) test is the recommended screening test for prostate cancer. Discuss the risks and benefits of prostate cancer screening with your health care provider. If you are age 70 or older, screening is likely to lead to more risks than benefits (risks outweigh the benefits). This information is not intended to replace advice given to you by your health care provider. Make sure you discuss any questions you have with your health care provider. Document Released: 11/13/2017 Document Revised: 01/15/2018 Document Reviewed: 11/13/2017 [employer] Patient Education 2020 [employer]. Follow Up Care 10/28/2021 14:30:58 With:YUSUF NGUYEN, Erasto Chen, URL Address: [facility] [address] , [place] [address]- When: Unknown [facility] 10-02-2021 Note PROCEDURE: XR SHOULD ER RT 2V or > HISTORY: Pain of right shoulder joint ; chronic right shoulder and arm pain COMPARISON: None. FINDINGS: BONES:Slight narrowing of the acromioclavicular joint consistent with mild degenerative changes. Unremarkable glenohumeral joint. No fracture, dislocation, bone lesion. SOFT TISSUES:No visible soft tissue swelling. EFFUSION:None visible. OTHER: Negative. IMPRESSION: 1. No acute bone abnormality. 2. Mild degenerative changes. Electronically authenticated by: ARCADIO ARRIOLA Date: 2021-10-02 08:59 [facility] Evaluation + Plan note Future Appointments Appointment Date:04/24/2023 10:15:00 AM Scheduled Provider:Erasto CHAVEZ MD Location:[facility] Appointment Type:URO Office Visit Diagnostic Tests PendingPSA Total 04/22/22 [facility] Evaluation + Plan note Future Appointments Appointment Date:05/16/2024 09:45:00 AM Scheduled Provider:Erasto CHAVEZ MD Location:[facility] Appointment Type:URO Office Visit Diagnostic Tests PendingPSA Total 03/19/24 [facility] Evaluation + Plan note Future Appointments Appointment Date:06/19/2025 10:00:00 AM Scheduled Provider: Location:[facility] Appointment Type:URO Nurse Visit Appointment Date:06/26/2025 10:15:00 AM Scheduled Provider:Erasto CHAVEZ MD Location:[facility] Appointment Type:URO Office Visit [facility] Hospital course Narrative No data available for this section [facility] Hospital Discharge instructions No data available for this section [facility] note No data available for this section [facility] Summary Purpose Family History No Family History Records FoundNo Family History Records Found No data available for this section No data available for this section No Family History Records FoundNo Family History Records FoundNo Family History Records Found Advance Directives No Advanced Directives Records FoundNo Advanced Directives Records FoundNo Advanced Directives Records FoundNo Advanced Directives Records FoundNo Advanced Directives Records Found Additional Source Comments (unrecognized sect ion and content) No Status Records FoundNo Status Records FoundNo Status Records FoundNo Status Records FoundNo Status Records Found INFORMATION SOURCE (unrecogn ized section and content) DATE CREATED AUTHOR 12/12/2017 [facility] DATE CREATED AUTHOR AUTHOR'S ORGANIZ ATION 02/12/2022 [facility] DATE CREATED AUTHOR AUTHOR'S ORGANIZ ATION 06/22/[address] [facility] DATE CREATED AUTHOR AUTHOR'S ORGANIZ ATION 06/24/2024 [facility] DATE CREATED AUTHOR AUTHOR'S ORGANIZ ATION 07/14/[address] [facility] Patient Care team informatio n (unrecognized section and content) Personnel Name: Lorenzo King DO Address: Address: [address] [place] [address] Personnel Name: LORENZO KING DO Address: Address: [address] [place] [address]- Personnel Name: LORENZO KING DO Address: [address] [place] [address]- [employer]: FOR RECORDS PERTAINING TO PATIENTS WHO ARE OR HAVE BEEN ENROLLED IN A CHEMICAL DEPENDENCY/SUBSTANCEABUSE PROGRAM, SOME INFORMATION MAY BE OMITTED. This clinical summary was aggregated from multiple sources. Caution should be exercised in using it in the provision of clinical care. This summary normalizes information from multiple sources, and as a consequence, information in this document may materially change the coding, format and clinical context of patient data. In addition, data may be omitted in some cases. CLINICAL DECISIONS SHOULD BE BASED ON THE PRIMARY CLINICAL RECORDS. [facility] [employer] [facility]. provides no warranty or guarantee of the accuracy or completeness of information in this document.
--- NOTE | 2024-07-25 08:32 | CT_ITS ---
The [address] [address] Patient Name: JERI LOW MRN: [id number] date: 1955 Sex: M Assigned Patient Location: LAB Current Patient Location: LAB Accession/Order Number: [id number] Exam Date: 07/25/2024 11:46 Report Date: 07/25/2024 11:55 At the request of: DORINA GOLDBERG MD Procedure: CT abdomen pelvis wo/w con CT ABDOMEN AND PELVIS WITHOUT AND WITH CONTRAST CLINICAL DATA: Hematuria. COMPARISON: None Spiral images were obtained through the abdomen and pelvis before and after intravenous administration of 100 mL of Omnipaque 300. This CT exam was performed using one or more following dose reduction techniques: Automated exposure control, adjustment of the mA and/or kV according to patient size, or use of iterative reconstruction technique. Limited cuts through the lung bases show minor dependent atelectasis. The kidneys are within normal limits for size, position and contour. Precontrast, no renal, ureteral or bladder stones are seen. Following contrast administration, the renal nephrograms are symmetric. No renal mass lesions are identified. No hydronephrosis is noted. The uterus are segmentally opacified down to the bladder. The prostate is mildly prominent and lobulated with mild mass effect at the bladder trigone. There are 3 bladder diverticula, one on each side and one at the dome associated with the urachal remnant. No calcified gallstones are identified. There is a small left hepatic cyst. The spleen, pancreas and adrenal glands show no acute findings. There is atherosclerotic plaque at the aorta, splenic and iliac arteries. There are no enlarged lymph nodes or ascites. The small bowel loops are within normal limits for caliber. There is anastomotic suture associated with small bowel on the right. There is also anastomotic suture associated with the descending colon on the left. There is air and stool within the colon. There are scattered colonic diverticula. There is a supraumbilical ventral hernia that extends off to the right containing mesenteric fat and nondistended small bowel. Reverse S-shaped thoracolumbar scoliotic curvature and degenerative changes are present at the spine. Images through the pelvis show no appendiceal inflammation. There are normal caliber small bowel loops. A small amount of air and stool are seen at the colon distally. There is a mildly patulous left inguinal ring containing fat. No ascites is seen. CT/CT abdomen pelvis wo/w con IMPRESSION: NO OBSTRUCTIVE UROPATHY OR STONE DISEASE. PROSTATE HYPERTROPHY WITH MILD MASS EFFECT AT THE BLADDER TRIGONE. MULTIPLE URINARY BLADDER DIVERTICULA. DIVERTICULOSIS. POSTOPERATIVE CHANGES INVOLVING BOWEL. SUPRAUMBILICAL VENTRAL HERNIA CONTAINING NORMAL CALIBER SMALL BOWEL. Impression dictated by: Tri Madrid M.D. 07/25/2024 11:55 AM Dictation Location: [place] [address] Electronically authenticated by: [id number] Y Date: 07/25/2024 11:55
[2024-07-25 08:41] LABS: Estimated GFR (African America >60 (>=60 mL/min/1.73m^2); Estimated GFR (Non-African Ame >60 (>=60 mL/min/1.73m^2)
== END 2024-07-25 08:23 | disposition home or self-care (01) ==
LOC: LAB 08:23
PROVIDERS: PCP Family Medicine; Visit Provider Urology
DX: R31.9 Hematuria, unspecified (principal); N32.3 Diverticulum of bladder; K57.90 Diverticulosis of intestine, part unspecified, without perforation or abscess without bleeding; K43.9 Ventral hernia without obstruction or gangrene
CPT/HCPCS: 36415; 74178; 82565; Q9967

== ENCOUNTER 2024-10-10 09:11 | Outpatient (OUT) | payer MEDICARE, SELFPAY ==
--- OUTSIDE RECORDS SUMMARY | 2024-10-10 09:19 | XMS_ITS | CCD ---
Author Organization [facility] Care Team Providers Care Assignment Clerk Name Role Phone PHYSICIAN, DEFAULT Unavailable Unavailable PHYSICIAN, DEFAULT Unavailable Unavailable HOUSE, DR CISNEROS Admitting Unavailable HOUSE, DR CISNEROS Attending Unavailable HOUSE, DR CISNEROS Primary Care Unavailable HOUSE, DR CISNEROS Consulting Unavailable CHAVEZ, DR CAM Admitting Unavailable CHAVEZ, DR CAM Attending Unavailable HOUSE, DR CISNEROS Primary Care Unavailable CHAVEZ, DR CAM Consulting Unavailable House, Lorenzo Hillman Primary Care Physician [place] Primary Care Physician CHAVEZ, Erasto R Attending Unavailable CHAVEZ, Erasto R Attending Unavailable CHAVEZ, Erasto R Attending Unavailable CHAVEZ, Erasto R Admitting Unavailable CHAVEZ, Erasto R Attending Unavailable CHAVEZ, Erasto R Attending Unavailable CHAVEZ, Erasto R Attending Unavailable CHAVEZ, Erasto R Admitting Unavailable CHAVEZ, Erasto R Attending Unavailable CAHVEZ, Erasto R Attending Unavailable CHAVEZ, Erasto R Admitting Unavailable CHAVEZ, Erasto R Attending Unavailable HOUSE, DO LORENZO Hillman Attending Unavailable HOUSE, LORENZO Hillman Primary Care Unavailable HOUSE, DO LORENZO Hillman Attending Unavailable HOUSE, LORENZO Hillman Primary Care Unavailable Allergies Allergy Classification Reported Allergen(s) Allergy Type Date of Onset Reaction(s) Facility (2 sources) No Known Medication Allergies; Translations: [No Known Medication Allergies] Propensity to adverse reactions (disorder) [facility] Repository Medications Current Medications Medication Drug Class(es) Dates Sig (Normalized) Sig (Original) Eliquis (1 source) Factor Xa Inhibitor Start: 05-23-2019 Eliquis Oral, BID, Refills(s) 0 Start Date: 05/23/19 Status: Ordered hydroCHLOROthiazide / Lisinopril (4 sources) Thiazide Diuretic, Angiotensin Converting Enzyme Inhibitor Start: 05-23-2019 take 1 tablet by mouth once daily hydrochlorothia zide-lisinopril 12.5 mg-10 mg oral tablet tab(s), Oral, Daily, Refill(s) 0 Start Date: 05/23/19 Status: Ordered Repeat number: 1 Start: 05-23-2019 take 1 tablet by dorota once daily hydrochlorothiazide-lisinopril 12.5 mg-1 0 mg oral tablet tab(s), Oral, Daily, Refill(s) 0 Start Date: 05/23/19 Status: Ordered tamsulosin hydrochloride 0.4 mg oral capsule (4 sources) alpha-Adrenergic Festus Start: 06-20-2024 take 1 capsule by mouth twice daily tamsulosin 0.4 mg Cap 0.4 mg = 1 cap(s), Oral, BID, # 60 cap(s), Refills(s) 11, Pharmacy: [facility] [id number], 165, cm, 06/20/24 10:27:00 EDT, Height/Length Dosing, 81.5, kg, 06/20/24 10:27:00 EDT, Weight Dosing Start Date: 06/20/24 Status: Ordered Quantity: 60.0 Unit: cap(s) Repeat number: 12 Indications: Benign prostatic hyperplasia with lower urinary tract symptoms; Start: 07-16-2022 End: 07-11-2023 take 1 capsule by mouth twice daily Flomax 0.4 mg Cap 0.4 mg = 1 cap(s), Oral, BID, X 90 day(s), # 180 cap(s), Refills(s) 3, Pharmacy: [facility] [id number], 165, cm, 04/22/22 8:53:00 EST, Height/Length Dosing, 84.7, kg, 04/22/22 8:53:00 EST, Weight Dosing Start Date: 07/16/22 Stop Date: 07/11/23 Status: Ordered Start: 10-28-2021 take 1 capsule by mo [facility] twice daily Flomax 0.4 mg Cap 0.4 mg = 1 cap(s), Oral, BID, # 180 tab(s), Refills(s) 1, Pharmacy: [facility] [id number], 165, cm, 10/15/20 14:13:00 EDT, Height/Length Dosing, 80, kg, 08/30/21 14:13:00 EDT, Weight Dosing Start Date: 10/28/21 Status: Ordered Completed/Discontinued Medications Medication Drug Class(es) Dates Sig (Normalized) Sig (Original) ciprofloxacin 500 mg oral tablet (1 source) Quinolone Antimicrobial Start: 08-26-2024 take 1 tablet by mouth once daily Cipro 500 mg Tab 500 mg = 1 tab(s), Oral, Daily, Take 1 tablet the day before the procedure and 1 tablet after the procedure, # 2 tab(s), Refills(s) 0, Pharmacy: [facility] [id number], 165, cm, 06/20/24 10:27:00 EDT, Height/Length Dosing, 81.5, kg, 06/20/24 10:27:00 EDT, Weight Dosing Start Date: 08/26/24 Status: Ordered Quantity: 2.0 Unit: tab(s) Repeat number: 1 Problems Active Problems Problem Classification Problem Date Documented Da te Episodic/Chronic Essential hypertension (4 sources) Hypertensive disorder 05-23-2019 Chronic Genitourinary symptoms and ill-defined conditions (10 sources) Nocturia; Translations: [Nocturia] Onset: 04-22-2022 Episodic Hyperplasia of prostate (11 sources) Benign prostatic hyperplasia with lower urinary tract symptoms; Translations: [Benign prostatic hypertrophy with outflow obstruction] Onset: 02-03-2022 Chronic Other screening for suspected conditions (not mental disorders or infectious disease) (8 sources) Elevated prostate specific antigen [PSA]; Translations: [Raised prostate specific antigen] Onset: 02-11-2022 Episodic Phlebitis; thrombophlebitis and thromboembolism (4 sources) Deep venous thrombosis 05-23-2019 Episodic Unclassified (2 sources) Asymptomatic microscopic hematuria 06-20-2024 Past or Other Problems Problem Classification Problem Date Documented Da te Episodic/Chronic Other non-traumatic joint disorders (4 sources) Pain in right shoulder; Translations: [PAIN IN RIGHT SHOULDER] Onset: 10-01-2021 Episodic Results Test Name Value Interpretation Reference Range Facility [facility] Fish and Urine Cyt o ([facility])on 09-13-2024 UVFISH & UC Diagnosis Info Invalid Interpretation Code [facility] Comment on above: Result Comment: A:Ur ine,Bladder Wash:Bladder Wash Diagnosis Summary - A few clusters of urothelial cells with mild atypia; low grade papillary urothelial neoplasm can not be excluded. Clinical correlation is indicated. Adequate cellularity for evaluation. Diagnosis Summary - The [facility] FISH study detected normal copy numbers for chromosomes 3, 7, 17, and 9p21. 25 cells were analyzed in this evaluation. No evidence of aneuploidy for chromosomes 3, 7, or 17 or deletion of the 9p21 locus was found in cells present in this specimen. This test does not rule out the possibility of a low grade non-invasive papillary urothelial carcinoma. These findings should be correlated with cytology and cystoscopy results. * CPT: 27518, 74772. Microscopic Notes - Microscopic Notes - Abnormal cells 9p21 deletions: Abnormal cells aneploid events: Total cells analyzed: 25 Hematuria: Gross Description Site ID:A color dark Yellow fixative Alcohol Received 110 mls of clear dark yellow fluid with the patient's name and, Bladder Wash on the vial. Electronically signed by : on: 09/13/2024 08:33:31 Performed By: #### 1 [id number] #### [facility] [address] [place] [address] Ambulatory Visit Summaryon 0 09-05-2024 Ambulatory Visit Summary Ambulatory Visit Summary JERI LOW :1955 Visit Date:09/05/2024 Ambulatory Visit Instructions Your Diagnosis Asymptomatic microscopic hematuria Elevated PSA BPH with urinary obstruction Your Care Team Attending Physician - Erasto CHAVEZ MD Primary Care Physician - LORENZO KING DO This Is Your Medications List ciprofloxacin (Cipro 500 mg Tab) tamsulosin (tamsulosin 0.4 mg Cap) Contact prescribing physician if questions or concerns hydrochlorothiazide- lisinopril (hydrochlorothiazide -lisinopril 12.5 mg-10 mg oral tablet) Procedures Performed Transrectal biopsy of prostate using ultrasound (US) guidance (05/17/2018), History of hernia repair. Discharge Vitals Heart Rate (Peripheral) 68 Respiratory Rate 18 Blood Pressure 128/80 Height 165 cm Height 65 in Weight 81 kg Weight 178.574 lb BMI 29.75 What to do next Scheduled Follow-Up Appointments Thursday 8:45 AM EDT With: Where: [facility] [address] [address]- Thursday. 2025 10:00 AM EDT With: Where: [facility] [address] [place] [address]- Thursday2025 10:15 AM EDT With: Erasto CHAVEZ MD Where: [facility] [address] [place] [address]- You Need to Schedule the Following Appointments Follow Up with Erasto CHAVEZ MD, URL When: Where: [facility] [address] [place] [address], [facility] [place] [address]- Medications What How Much When Why Instructions Unchanged ciprofloxacin (Cipro 500 mg Tab) 1 Tablets By Mouth Every day Take 1 tablet the day before the procedure and 1 tablet after the procedure Unchanged tamsulosin (tamsulosin 0.4 mg Cap) 1 Capsules By Mouth 2 times a day BPH with urinary obstruction Unchanged hydrochlorothiazide- lisinopril (hydrochlorothiazide -lisinopril 12.5 mg-10 mg oral tablet) By Mouth Every day Contact prescribing physician if questions or concerns Medications and Immunizations Administered Given lidocaine Top 2% Gel w/Appl 6 mL, 6 mL, Topical. For: Asymptomatic microscopic hematuria Allergies No Known Medication Allergies Problems Ongoing [...] these instructions at home: Medicines ??? Take urjd-ure-frwpmmq and prescription medicines only as told by [...] ? After a bowel movement, wipe from f (more content not included)... Normal [facility] Fish and Urine Cyt [facility] ([facility])on 09-05-2024 [facility] Method of Extraction Bladder Wash Normal [facility] Comment on above: Performed By: #### 1 [id number] #### [facility] [address] [place] [address] [facility] Number of Jars [address] [facility] Comment on above: Performed By: #### 1 [id number] #### [facility] [address] [place] [address] [facility] Specimen Bladder Wash Normal [facility] Comment on above: Performed By: #### 1 [id number] #### [facility] [address] [place] [address] [facility] Type of Service Technical Only Normal [facility] Comment on above: Performed By: #### 1 [id number] #### [facility] [address] [place] [address] Urology Office/Clinic Noteon 09-05-2024 Urology Office/Clinic Note Urology Office/Clinic Note Chief Complaint pt here for cysto with fishcytology HPI Staff 68 year old male patient here for CYST/ NEEDS FISH, look over ct scan- done 07/25/24 Previous dx: elevated PSA, BPH with urinary obstruction. S/P TRUS/bx 05/2018 *flomax 0.4 mg bid Previous PSA 02/17/23- 2.3 & 21.3% 10/07/23 - 3.36 pt denies pain/burning denies visible blood denies flank pain History of Present Illness Tests reviewed: CT I have reviewed the previous health record information and history for this patient from Dr. Chavez. I have reviewed and verified the staff HPI to be accurate for this encounter. Review of Systems PHQ Score Initial Depression Screen Score: 0 SCORE ROS - Provider Constitutional: denies weight loss, denies hot flashes. Eyes: denies eye problems. Gastrointestinal: denies nausea, denies vomiting. Cardiovascular: denies chest pain or angina. Integumentary: no dryness Musculoskeletal: denies musculoskeletal symptoms. ENMT: denies otolaryngeal symptoms. Respiratory: no shortness of breath. Heme/Lymph: denies easy bleeding tendency, denies easy bruising tendency. Psychiatric: no confusion, no anxiety. Genitourinary: See HPI. Physical Exam Vitals & Measurements HR: 68(Peripheral) RR: 18 BP: 128/80 HT: 165 cm HT: 65 in WT: 81 kg WT: 178.574 lb BMI: 29.75 General Appearance: alert, no distress, well nourished, well developed adult. Procedure Operative Information Anesthesia Type: Local Procedure: Local Cystoscopy Complications: None Surgical risks, benefits, details of the procedure have been explained to the patient. Full informed consent has been obtained. Intraoperative Information Prepped: Patient is brought back to the endoscopy suite. Patient is placed in supine position. Patient prepped in the usual fashion with Betadine solution. 2% Xylocaine Jelly is placed per Urethra. After waiting several minutes, the Cystoscope is introduced. The Urethra is: Normal The Prostatic Urethra is: _Bilobar hypertrophy. The Bladder: No tumors or stones, Trabeculated: Severe (3) with open diverticuli. A few of them are large. The Ureteral orifices: Show efflux of clear urine Specimens Removed: Bladder wash sent for FISH and Cytology test Removal: Cystoscope is removed. The patient tolerated it well. Postoperative Information Patient is discharged home with antibiotic coverage. Follow up arranged. Assessment/Plan 1. Asymptomatic microscopic hematuria (R31.21: Asymptomatic microscopic hematuria) Micro UA 06/20/24 - RBC 4-20. CT AP w/wo con 07/25/24 TBH - prostate is mildly prominent and lobulated with mild mass effect at the bladder trigone. There are three bladder diverticula, one on each side and one at the dome associate with the urachal remnant. No stones, lesions, or masses. Pt had IO cysto to check for bladder tumor recurrence without complications today. Pt took prophylactic abx prior to procedure. Will send bladder wash specimen for FISH/cytol and call pt if positive. Reviewed micro UA and CT with pt. 2. Elevated PSA (R97.20: Elevated prostate specific antigen [PSA]) PSA: 04/2018 - 6.32 & 9.8% 09/25/20 - 4.70 & 10.4% 02/03/22 - 3.20 & 16.6% 02/17/23 - 2.30 & 21.3% 10/07/23 - 3.36 S/p TRUS/bx 05/2018 neg. JORGE 04/22/22: 45 gms, benign. Follow up 06/26/25 as scheduled for 1 yr with PSA or sooner if needed. Pt understands and agrees with plan. -PSA due next month (wo OV) 3. BPH with urinary obstruction (N40.1: Benign prostatic hyperplasia with lower urinary tract symptoms) Taking Flomax 0.4 mg bid. Follow-up With When Contact Information YUSUF NGUYEN, Erasto Chen, URL [facility] [address] [place] [address]- Additional Instructions: Follow up 06/26/25 as scheduled for 1 yr with PSA Patient Education Hematuria, Adult I, Meghana Mahmood, personally scribed for Dr. Chavez on 09/05/2024 08:52:59. . Documentation recorded by the brandynibiris, Meghana Mahmood, accurately reflects the services(s) I performed and decisions made by me. Authenticated by Dr. Chavez on 09/05/2024 08:54:11. Problem List/Past Medical History Ongoing Asymptomatic microscopic hematuria BPH with urinary obstruction Deep vein thrombosis Elevated PSA H/O hematuria Hypertension Nocturia Historical No qualifying data Procedure/Surgical History Transrectal biopsy of prostate using ultrasound (US) guidance (05/17/2018), History of hernia repair. Medications Cipro 500 mg Tab, 500 mg= 1 tab(s), Oral, Daily hydrochlorothiazide- lisinopril 12.5 mg-10 mg oral tablet, Oral, Daily tamsulosin 0.4 mg Cap, 0.4 mg= 1 cap(s), Oral, BID, 11 refills Allergies No Known Medication Allergies Social History Alcohol Never., 06/13/2024 Substance Abuse Never., 06/13/2024 Tobacco Never (less than 100 in lifetime) Tobacco Use:. Never Smokeless Tobacco Use:. Household tobacco concerns: No., (more content not included)... Normal [facility] Comment on above: Result Comment: Elec tronically Signed By: Erasto CHAVEZ MD\.br\Date and Time Signed: 09/05/24 08:54 EDT\.br\Electronically Co-Signed By: Meghana Mahmood\.br\Date and Time Co-Signed: 09/05/24 08:53 EDT Rad - CT Reporton 07-25-2024 Rad - CT Report [id number] #[id number] [facility] Lab - Urinalysis Resultson 0 06-21-2024 Lab - Urinalysis Results [id number] 0#[id number] [facility] Ambulatory Visit Summaryon 0 06-20-2024 Ambulatory [...] Following Appointments Follow Up with YUSUF NGUYEN, Erasto Chen, SHERIN When: Where: [facility] [address] [place] [address]- [phone] Medications What How Much When Why Instructions Unchanged tamsulosin (tamsulosin 0.4 mg Cap) 1 Capsules By Mouth 2 times a day BPH with urinary obstruction Pickup at [facility] [id number] Unchanged hydrochlorothiazide- lisinopril (hydrochlorothiazide -lisinopril 12.5 mg-10 mg oral tablet) By Mouth Every day Contact prescribing physician if questions or concerns Pharmacy Information [facility] [id number]: [address] [place], [place] [id number] [phone] Allergies No Known Medication Allergies Problems Ongoing [...] these instructions at home: Medicines ??? Take qzmm-xcj-ewyuqud and prescription medicines only as told by [...] if: ??? (more content not included)... Normal [facility] URINALYSISOrdered By: SYSTEM SYSTEM on 06-20-2024 Bilirubin Ql (U) Negative Normal Negativemg/dL [facility] UA Auto SS Clarity (U) Clear (06/20/24 11:17 AM) Normal Clear [facility] UA Auto SS Color (U) Yellow 1 (06/20/24 11:17 AM) Normal Yellow [facility] UA Auto SS Comment on above: Interpretive Data: M icroscopic readings are only performed on those samples that meet specific criteria set forth by [facility]. Epithelial cells.squamous Auto (Urine sed) [#/Area] 0-2 graded/HPF Invalid Interpretation Code [facility] UA Auto SS Glucose Ql (U) Negative Normal Negativemg/dL [facility] UA Auto SS Hemoglobin Auto test strip (U) [Mass/Vol] 1+ mg/dL Invalid Interpretation Code Negativemg/dL [facility] UA Auto SS Ketones Auto test strip Ql (U) Negative Normal Negativemg/dL [facility] UA Auto SS Leukocyte esterase Auto test strip Ql (U) Negative Normal NegativeLeu/u L [facility] UA Auto SS Mucus Auto Ql (U) Negative Normal Negativegr brad d/LPF [facility] UA Auto SS Nitrite Auto test strip Ql (U) Negative Normal Negativemg/dL [facility] UA Auto SS pH (U) 6.5 *NA* (06/20/24 11:17 AM) Invalid Interpretation Code 5.0 - 9.0 [facility] UA Auto SS Protein Ql (U) Trace mg/dL Invalid Interpretation Code Negativemg/dL [facility] UA Auto SS RBC Ql (U) 4-20 graded/HPF Invalid Interpretation Code 0-3graded/HPF [facility] UA Auto SS Specific gravity (U) [Rel density] 1.022 *NA* (06/20/24 11:17 AM) Invalid Interpretation Code 1.005 - 1.030 [facility] UA Auto SS Urobilinogen (U) [Mass/Vol] Negative Normal Negativemg/dL [facility] UA Auto SS WBC Auto (Urine sed) [#/Area] 0-5 graded/HPF Normal 0-5graded/HPF [facility] UA Auto SS URINALYSISOrdered By: Chris Alba on 06-20-2024 UA Spec Desc Random Urine (06/20/24 11:17 AM) Normal [facility] UA Auto SS Urinalysis with Microon Bilirubin Ql (U) Negative Normal Negative [facility] Comment on above: Performed By: #### 4 [id number] #### [facility] [address] [place] [address] Clarity (U) Clear Normal Clear [facility] Comment on above: Performed By: #### 4 [id number] #### [facility] [address] [place] [address] Color (U) Yellow Normal Yellow [facility] Comment on above: Result Comment: Micr oscopic readings are only performed on those samples that meet specific criteria set forth by [facility]. Performed By: #### 4 [id number] #### [facility] [address] [place] [address] Epithelial cells.squamous Auto (Urine sed) [#/Area] 0-[address] [facility] Comment on above: Performed By: #### 4 [id number] #### [facility] [address] [place] [address] Glucose Ql (U) Negative Normal Negative [facility] Comment on above: Performed By: #### 4 [id number] #### [facility] [address] [place] [address] Hemoglobin Auto test strip (U) [Mass/Vol] 1+ mg/dL Abnormal Negative [facility] Comment on above: Performed By: #### 4 [id number] #### [facility] [address] [place] [address] Ketones Auto test strip Ql (U) Negative Normal Negative [facility] Comment on above: Performed By: #### 4 [id number] #### [facility] [address] [place] [address] Leukocyte esterase Auto test strip Ql (U) Negative Normal Negative [facility] Comment on above: Performed By: #### 4 [id number] #### [facility] [address] [place] [address] Mucus Auto Ql (U) Negative Normal Negative [facility] Comment on above: Performed By: #### 4 [id number] #### [facility] [address] [place] [address] Nitrite Auto test strip Ql (U) Negative Normal Negative [facility] Comment on above: Performed By: #### 4 [id number] #### [facility] [address] [place] [address] pH (U) 6.5 [pH] Invalid Interpretation Code 5.0-9.0 [facility] Comment on above: Performed By: #### 4 [id number] #### [facility] [address] [place] [address] Protein Ql (U) Trace Abnormal Negative [facility] Comment on above: Performed By: #### 4 [id number] #### [facility] [address] [place] [address] RBC Ql (U) 4-20 Abnormal 0-3 [facility] Comment on above: Performed By: #### 4 [id number] #### [facility] [address] [place] [address] Specific gravity (U) [Rel density] 1.022 Invalid Interpretation Code 1.005-1.030 [facility] Comment on above: Performed By: #### 4 [id number] #### [facility] [address] [place] [address] Urobilinogen (U) [Mass/Vol] Negative Normal Negative [facility] Comment on above: Performed By: #### 4 [id number] #### [facility] [address] [place] [address] WBC Auto (Urine sed) [#/Area] 0-5 Normal 0-5 [facility] Comment on above: Performed By: #### 4 [id number] #### [facility] [address] [place] [address] Type of Urine collection method Random Urine Normal [facility] Comment on above: Performed By: #### 4 [id number] #### [facility] [address] [place] [address] Urology Office/Clinic Noteon 06-20-2024 Urology Office/Clinic Note [...] [facility] [address], [place] [phone] Additional Instructions: 1 yr w/ PSA Patient [...] Dipstick: 1+ (30 mg/dl) (06/20/24 10:18:00) Specific [place] Urine Dipstick: 1.025 (06/20/24 10:18:00) Urine Appearance Urine Dipstick: Clear (06/20/24 10:18:00) Urine Color Urine Dipstick: Yellow (06/20/24 10:18:00) Urobilinogen Urine Dipstick: Normal 0.2-1 EU/dl (06/20/24 10:18:00) pH Urine Dipstick: 6.5 (06/20/24 10:18:00) [1] URO- 1 year; Erasto CHAVEZ MD 05/15/2023 09:[address] [facility] Comment on above: Result Comment: Elec tronically Signed By: Erasto CHAVEZ MD\.br\Date and Time Signed: 06/20/24 11:02 EDT\.br\Electronically Co-Signed By: Joanne Jason\.br\Date and Time Co-Signed: 06/20/24 10:59 EDT PSA, FREE AND TOTAL RATIOon 02-04-2022 % Free PSA 16.6 % Normal [facility] Comment on above: Result Comment: The table below lists the probability of prostate cancer for men with non-suspicious JORGE results and total PSA between 4 and 10 ng/mL, by patient age (Conrado et al, PADMA 1998, 279:1542). % Free PSA 50-64 yr 65-75 yr 0.00-10.00% 56% 55% 10.01-15.00% 24% 35% 15.01-20.00% 17% 23% 20.01-25.00% 10% 20% >25.00% 5% 9% Please note: Conrado et al did not make specific recommendations regarding the use of percent free PSA for any other population of men. Performed By: #### P SAFREE #### [facility] [address] [address] [address] Angela Crowe Prostate specific Ag [Mass/Vol] 3.2 ng/mL Normal 0.0-4.0 [facility] Comment on above: Result Comment: Blayne simmons ECLIA methodology. . According to the [place] [employer], Serum PSA should decrease and [...] disease. Performed By: #### P SAFREE #### [facility] [address] [address] [address] Angela Crowe PSA, Free 0.53 ng/mL Normal N/A [facility] Comment on above: Result Comment: Blayne simmons ECLIA methodology. Performed By: #### P SAFREE #### [facility] [address] [place] [address] Dr. Angela Crowe Vital Signs Date Time Vital Sign Value Performing Clinician Jessicai lity 05-15-2023 08:48-0400 Diastolic blood pressure 84 mm[Hg] Erasto CHAVEZ [facility] 05-15-2023 08:48-0400 Heart rate 76 /min Erasto CHAVEZ [facility] 05-15-2023 08:48-0400 Respiratory rate 16 /min Erasto CHAVEZ [facility] 03-29-2024 08:48-0400 Systolic blood pressure 132 mm[Hg] Erasto CHAVEZ [facility] 04-22-2022 08:50-0500 Blood Pressure Location Erasto CHAVEZ [facility] 04-22-2022 08:50-0500 Diastolic blood pressure 90 mm[Hg] Erasto CHAVEZ [facility] 04-22-2022 08:50-0500 Heart rate 93 /min Erasto CHAVEZ [facility] 04-22-2022 08:50-0500 Systolic blood pressure 133 mm[Hg] Erasto CHAVEZ [facility] Encounters Encounter Date Encounter Type Care Provider Facility Start: 06-26-2025 ambulatory Erasto CHAVEZ Facili ty:[facility] Start: 06-19-2025 ambulatory Erasto CHAVEZ Facili ty:[facility] [place] Start: 10-06-2024 ambulatory DO LORENZO KING [facility]clair lity:[facility] Start: 09-05-2024 End: 09-05-2024 ambulatory Erasto CHAVEZ [place] Start: 09-05-2024 End: 09-05-2024 ambulatory Erasto CHAVEZ Facility: [place] Start: 09-05-2024 End: 09-05-2024 Patient encounter procedure Erasto CHAVEZ [facility] Start: 06-20-2024 End: 06-20-2024 ambulatory Erasto CHAVEZ [place] Start: 06-20-2024 End: 06-20-2024 Lab Drop off Erasto CHAVEZ [facility] Start: 06-20-2024 End: 06-20-2024 ambulatory Erasto CHAVEZ Facility:[facility] Start: 06-13-2024 End: 06-13-2024 ambulatory Erasto CHAVEZ Facility:[facility] [place] Start: 04-07-2024 ambulatory DO LORENZO KING Faci lity:[facility] Start: 05-15-2023 End: 05-15-2023 Patient encounter procedure Erasto CHAVEZ [facility] [place] Start: 04-22-2022 End: 04-22-2022 Patient encounter procedure Erasto CHAVEZ [facility] Start: 02-03-2022 End: 02-04-[address] ERASTO CHAVEZ Facility:[facility] Start: 10-01-2021 End: 10-02-[address] LORENZO KING Facility:[facility] Start: 11-11-2017 End: 11-12-2017 Patient encounter DEFAULT PHYSICIAN Facility:[facility] Procedures Date Procedure Procedure Detail Performing Clinician Start: 05-17-2018 Transrectal biopsy o f prostate using ultrasound guidance Erasto CHAVEZ History of hernia repair Sparkle CHAVEZ Plan of Treatment Date Care Activity Detail Author Start: 10-10-2024 ambulatory Ambulatory Facility:[facility] Payers Date Payer Category Payer Medicare [id number] 2023 Unknown 1959 Unknown [id number] 1953 Unknown [id number] 2.16.84 [id number] 1953 Unknown [id number] 2.16.84 [id number] 1953 Unknown [id number] 2.16.8 [id number] 1953 Unknown [id number] 2.16.8 [id number] 1953 Unknown [id number] 2.16.8 [id number] 1953 Unknown [id number] 2.16.8 [id number] 1953 Unknown [id number] 2.16.8 [id number] 1953 Unknown [id number] 2.16.8 [id number] 1953 Unknown [id number] 2.16.8 [id number] 1953 Unknown [id number] 2.16.8 [id number] 1953 Unknown [id number] 2.16.8 [id number] 1953 Unknown [id number] 2.16.8 [id number] Social History Date Type Detail Facility Start: 05-23-2019 End: 09-05-2024 Tobacco smoking status Never smoked tobacco (finding) [facility] Sex Assigned At Male [facility] Tobacco smoking status Never [facility] Sexual Orientation [facility] Start: 05-05-2018 Sex Male (finding) [facility] Functional Status Date Assessment Result Facility 05-15-2023 Functional Status N/A [facility] 04-22-2022 Functional Status N/A [facility] Clinical Notes 10-02-2021 to 09-05-2024 Note Date & Type Note Facility 09-05-2024 Hospital Discharge instructions Patient Education 09/05/2024 08:33:08 Hematuria, Adult Hematuria, Adult Hematuria is blood in the urine. Blood may be visible in the urine, or it may be identified with a test. This condition can be caused by infections of the bladder, urethra, kidney, or prostate. Other possible causes include: Kidney stones. Cancer of the urinary tract. Too much calcium in the urine. Conditions that are passed from parent to child (inherited conditions). Exercise that requires a lot of energy. [...] cancers. Follow these instructions at home: Medicines Take akbg-syu-ucltztu and prescription medicines only as told by your health care provider. If you were prescribed an antibiotic medicine, take it as told by your health care provider. Do not stop taking the antibiotic even if you start to feel better. Eating and drinking Drink enough fluid to keep your urine pale yellow. It is recommended that you drink 3 4 quarts (2.8 3.8 L) a day. If you have been diagnosed with an infection, drinking cranberry juice in addition to large amounts of water is recommended. Avoid caffeine, tea, and carbonated beverages. These tend to irritate the bladder. Avoid alcohol because it may irritate the prostate (in males). General instructions If you have been diagnosed with a kidney stone, follow your health care provider's instructions about straining your urine to catch the stone. Empty your bladder often. Avoid holding urine for long periods of time. If you are female: ?After a bowel movement, wipe from front to back and use each piece of toilet paper only once. ?Empty your bladder before and after sex. Pay attention to any changes in your symptoms. Tell your health care provider about any changes or any new symptoms. It is up to you to get the results of any tests. Ask your health care provider, or the department that is doing the test, when your results will be ready. Keep all follow-up visits. This is important. Contact a health care provider if: You develop back pain. You have a fever or chills. You have nausea or vomiting. Your symptoms do not improve after 3 days. Your symptoms get worse. Get help right away if: You develop severe vomiting and are unable to take medicine without vomiting. You develop severe pain in your back or abdomen even though you are taking medicine. You pass a large amount of blood in your urine. You pass blood clots in your urine. You feel very weak or like you might faint. You faint. Summary Hematuria is blood in the urine. It has many possible causes. It is very important that you tell your health care provider about any blood in your urine, even if it is painless or the blood stops without treatment. Take vlxr-hcd-nmpreat and prescription medicines only as told by your health care provider. Drink enough fluid to keep your urine pale yellow. This information is not intended to replace advice given to you by your health care provider. Make sure you discuss any questions you have with your health care provider. Document Revised: 10/03/2020 Document Reviewed: 10/03/2020 iRewardChart Patient Education 2023 [employer]. Follow Up Care 07/07/2024 15:20:35 With:YUSUF NGUYEN, Erasto Chen, URL Address: [facility] [address] , [place] [address]- When: Unknown [facility] 09-05-2024 Note Patient Education Urology Hematuria, Adult Hematuria [...] these instructions at home: Medicines ??? Take tujn-pju-ukvcibe and prescription medicines only as told by [...] the blood stops without treatment. ??? Take ykgz-luf-urfsikm and prescription medicines only as told by your health care provider. ??? Drink enough fluid to keep your urine pale yellow. This information is not intended to replace advice given to you by your health care provider. Make sure you discuss any questions you have with your health care provider. Document Revised: 10/03/2020 Document Reviewed: 10/03/2020 iRewardChart Patient Education ? [address] [facility] 07-25-2024 Note Entered by GIFTY KING DO on July 25, 2024 10:45:55 EDT From: LORENZO KING DO To: [facility] [id number] Sent: 07/25/2024 10:45:55 EDT Subject: Medication Management Submitted: Complete:nabumetone (nabumetone 500 mg oral tablet) Signed by LORENOZ KING DO 07/25/2024 10:45:00 EDT Approved with modifications: nabumetone (NABUMETONE 500 MG TABLET) TAKE 1 TABLET BY MOUTH 2 TIMES A DAY Qty: 180 tab(s) Days Supply: 90 Refills: 1 Substitutions Allowed Route To Pharmacy - [facility] [id number] -------- From: [facility] [id number] To: LORENZO KING DO Sent: July 25, 2024 9:22:49 AM CDT Subject: Medication Management Due: July 26, 2024 12:03:20 AM CDT On Hold Pending Signature Drug: nabumetone (nabumetone 500 mg oral tablet), TAKE 1 TABLET BY MOUTH 2 TIMES A DAY Quantity: 180 tab(s) Days Supply: 0 Refills: 0 Substitutions Allowed Notes from Pharmacy: Dispensed Drug: nabumetone (nabumetone 500 mg oral tablet), TAKE 1 TABLET BY MOUTH 2 TIMES A DAY Quantity: 180 tab(s) Days Supply: 90 Refills: 0 Substitutions Allowed Notes from Pharmacy: -------- [facility] 06-20-2024 Note Patient Education Urology Hematuria, Adult [...] these instructions at home: Medicines ??? Take igqq-wuq-vtvjrbo and prescription medicines only as told by [...] the blood stops without treatment. ??? Take mlds-quy-guebjpj and prescription medicines only as told by your health care provider. ??? Drink enough fluid to keep your urine pale yellow. This information is not intended to replace advice given to you by your health care provider. Make sure you discuss any questions you have with your health care provider. Document Revised: 10/03/2020 Document Reviewed: 10/03/2020 iRewardChart Patient Education ? [address] [facility] 02-01-2024 Note Entered by GIFTY KING DO on February 01, 2024 15:21:46 EST From: LORENZO KING DO To: [facility] [id number] Sent: 02/01/2024 15:21:46 EST Subject: Medication Management Submitted: Complete:hydrochlorothiazide-lisin opril (hydrochlorothiazide-lisinopril 12.5 mg-10 mg oral tablet) Signed by LORENZO KING DO 02/01/2024 15:21:00 EST Approved with modifications: hydrochlorothiazide-lisinopril (LISINOPRIL-HCTZ 10-12.5 MG TAB) TAKE 1 TABLET BY MOUTH DAILY Qty: 90 tab(s) Days Supply: 90 Refills: 1 Substitutions Allowed Route To Pharmacy - [facility] [id number] -------- From: [facility] [id number] To: LORENZO KING DO Sent: February 01, 2024 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 Due: February 02, 2024 12:01:58 AM JACKHAMMER SPLITTER OPERATOR On Hold Pending Signature Drug: hydrochlorothiazide-lisinopril (hydrochlorothiazide-lisinopril 12.5 mg-10 mg oral tablet), TAKE 1 TABLET BY MOUTH DAILY Quantity: 90 tab(s) Days Supply: 0 Refills: 0 Substitutions Allowed Notes from Pharmacy: Dispensed Drug: hydrochlorothiazide-lisinopril (hydrochlorothiazide-lisinopril 12.5 mg-10 mg oral tablet), TAKE 1 TABLET BY MOUTH DAILY Quantity: 90 tab(s) Days Supply: 90 Refills: 0 Substitutions Allowed Notes from Pharmacy: -------- [facility] 05-15-2023 Hospital Discharge instructions Patient Education 05/15/2023 [...] urethra. Follow these instructions at home: Take nkku-prp-drqxsxj and prescription medicines only as told by [...] provider. Document Revised: 08/21/2021 Document Reviewed: 08/21/2021 iRewardChart Patient Education 2022 [employer]. Follow Up Care 04/22/2022 09:31:50 With:YUSUF NGUYEN, Erasto Chen, URL Address: [address] [place] [address]- When: Unknown [facility] 04-22-2022 Hospital Discharge instructions Patient Education 04/22/2022 [...] one of these risk factors: ?Being of -[place] descent. ?Having a family history of prostate [...] you: Are older than age 55. Are -[place]ian. Have a father, brother, or uncle who [...] 11/13/2017 Document Revised: 01/15/2018 Document Reviewed: 11/13/2017 iRewardChart Patient Education [place]. Follow Up Care 10/28/2021 14:30:58 With:YUSUF NGUYEN, Erasto Chen, URL Address: [facility] [address] , [place] [address]- When: Unknown [facility] 10-02-2021 Note PROCEDURE: XR SHOULD ER RT [...] authenticated by: ARCADIO ARRIOLA Date: 2021-10-02 08:59 [facility] Evaluation + Plan note Future Appointments Appointment Date:04/24/2023 10:15:00 AM Scheduled Provider:Erasto CHAVEZ MD Location:[facility] Appointment Type:URO Office Visit Diagnostic Tests PendingPSA Total 04/22/22 [facility] Evaluation + Plan note Future Appointments Appointment Date:05/16/2024 09:45:00 AM Scheduled Provider:Erasto CHAVEZ MD Location:[facility] Appointment Type:URO Office Visit Diagnostic Tests PendingPSA Total 03/19/24 [facility] Evaluation + Plan note Future Appointments Appointment Date:06/19/2025 10:00:00 AM Scheduled Provider: Location:[facility] Appointment Type:URO Nurse Visit Appointment Date:06/26/2025 10:15:00 AM Scheduled Provider:Erasto CHAVEZ MD [facility] Appoint[facility] Type:URO Office Visit [facility] Evaluation + Plan note Future Appointments Appointment Date:10/10/2024 08:45:00 AM Scheduled Provider: Location:[facility] [place] Appointment Type:URO Nurse Visit Appointment Date:06/19/2025 10:00:00 AM Scheduled Provider: Location:[facility] Appointment Type:URO Nurse Visit Appointment Date:06/26/2025 10:15:00 AM Scheduled Provider:Erasto CHAVEZ MD [facility] Appoint[facility] Type:URO Office Visit [facility] Hospital course Narrative No data available for this section [facility] Hospital Discharge instructions No data available for this section [facility] [place] note No data available for this section [facility] Summary Purpose Family History No Family [...] and content) DATE CREATED AUTHOR 12/12/2017 [facility] DATE CREATED AUTHOR AUTHOR'S ORGANIZ ATION 02/12/2022 [facility] DATE CREATED AUTHOR AUTHOR'S ORGANIZ ATION 09/06/2024 [facility] DATE CREATED AUTHOR AUTHOR'S ORGANIZ ATION 09/14/2024 [facility] DATE CREATED AUTHOR AUTHOR'S ORGANIZ ATION 10/08/2024 [facility] DATE CREATED AUTHOR AUTHOR'S ORGANIZ ATION 10/08/2024 [facility] Patient Care team informatio n (unrecognized section and content) Personnel Name: Lorenzo King DO Rafy Address: Address: [address] [place] [address] Personnel Name: LORENZO KING DO Rafy Address: Address: [address] [place] [address]- Personnel Name: LORENZO KING DO Address: [address] [place] [address]- [employer]: Personnel Name: LORENZO KING DO Address: [address] [place] [address]- [employer]: FOR RECORDS PERTAINING TO PATIENTS WHO [...] BE BASED ON THE PRIMARY CLINICAL RECORDS. [facility] [employer] [facility]. provides no warranty or guarantee of the accuracy or completeness of information in this document.
[2024-10-10 09:53] LABS: Hematocrit 44.8 % (42.0-54.0); Hemoglobin 15.1 g/dL (14.0-18.0); Immature Granulocytes Abs Auto 0.02 10^3/uL (0.00-0.03); Immature Granulocytes Pct Auto 0.3 % (0.0-0.5); Lymphocytes Absolute Auto 1.8 10^3/uL (1.2-3.8); Mean Corpuscular HGB Conc 33.7 g/dL (29.9-35.2); Mean Corpuscular Hemoglobin 29.3 pg (25.9-34.0); Mean Corpuscular Volume 86.8 fL (80.0-94.0); Platelet Count 210 10^3/uL (150-450); Red Blood Count 5.16 10^6/uL (4.70-6.10); White Blood Count 7.8 10^3/uL (4.0-11.0)
[2024-10-10 10:50] LABS: Alanine Aminotransferase 29 U/L (16-63); Albumin Globulin Ratio 0.9; Albumin Level 3.7 g/dL (3.4-5.0); Alkaline Phosphatase 107 U/L (46-116); Anion Gap 10.9; Aspartate Amino Transferase 15 U/L (15-37); Blood Urea Nitrogen 27.0 mg/dL (7.0-18.0); Calcium 9.0 mg/dL (8.5-10.1); Carbon Dioxide 26.5 mmol/L (21.0-32.0); Chloride 107 mmol/L (98-107); Estimated GFR (African America >60 (>=60 mL/min/1.73m^2); Estimated GFR (Non-African Ame 53 (>=60 mL/min/1.73m^2); Globulin 4.0 g/dL; Glucose 92 mg/dL (74-106); Potassium 4.4 mmol/L (3.5-5.1); Sodium 140 mmol/L (136-145); Total Protein 7.7 g/dL (6.4-8.2)
== END 2024-10-10 09:12 | disposition home or self-care (01) ==
LOC: LAB 09:11
PROVIDERS: PCP Family Medicine; Visit Provider Family Medicine
DX: M10.9 Gout, unspecified (principal); I10 Essential (primary) hypertension; M19.90 Unspecified osteoarthritis, unspecified site; N40.1 Benign prostatic hyperplasia with lower urinary tract symptoms; R35.1 Nocturia; Z12.5 Encounter for screening for malignant neoplasm of prostate
CPT/HCPCS: 36415; 80053; 85025; G0103